=== PATIENT | female | born 1970 | race Two or more races ===

== ENCOUNTER 2017-09-11 13:41 | Emergency (ER) | payer BC, OTHER ==
[~2017-09-11] VITALS: Ht 157.5 cm; Wt 54.4 kg
[2017-09-11 13:47] VITALS: BP 104/78
[2017-09-11] MEDS ORDERED: ACETAMINOPHEN 325 MG TAB PO ONE (14:00)
[2017-09-11] MEDS ORDERED: ONDANSETRON ODT 4 MG TAB PO ONE (15:15)
== END 2017-09-11 15:32 | disposition home or self-care (01) ==
LOC: ER 13:41
DX: N39.0 Urinary tract infection, site not specified (principal)
CPT/HCPCS: 81002; 99283; Q0162